=== PATIENT | female | born 1960 ===

== ENCOUNTER 2021-04-11 14:48 | Emergency (ER) | payer MEDICAID ==
[2021-04-11 15:01] VITALS: BP 138/83
[2021-04-12] MEDS ORDERED: ONDANSETRON 4 MG/2 ML INJ ONE (10:12)
== END 2021-04-11 14:50 | disposition left against medical advice (07) ==
LOC: ED 14:48
DX: R53.1 Weakness (principal); Z53.21 Procedure and treatment not carried out due to patient leaving prior to being seen by health care provider
CPT/HCPCS: J2405